=== PATIENT | male | born 2000 | race Caucasian/White ===

== ENCOUNTER 2025-09-07 12:52 | Outpatient (AMB) | payer OTHER, SELFPAY ==
--- OUTSIDE RECORDS SUMMARY | 2025-09-07 12:55 | XMS_ITS | Encounter Summary ---
Author Organization [facility] Address [address] [place] [address] Care Team Providers Care Stoker Installation Mechanic Name Role Phone Luisa Lee MD Primary Care Provider [phone] Encounter Details Date Type Department Care Team (Late st Contact Info) Description 04/14/2024 Orders Only [facility] Department of Internal Medicine [address], [place] [id number] Darius Lambert, DO [address] [place], [place] [id number] Chlamydia (Primary Dx) Social History Tobacco Use Types Packs/Day Years Used Date Smoking Tobacco: Some Days Cigars Smokeless Tobacco: Never Alcohol Use Standard Drinks/Week Comments Yes 2 (1 standard drink = 0.6 oz pur e alcohol) Overall Financial Resource Strain (CARDIA) Answe r Date Recorded How hard is it for you to pa y for the very basics like food, housing, medical care, and heating? Not hard at all 07/09/2023 PHQ-2 Answer Date Recorded PHQ-2 Score 0 07/09/2023 Hunger Vital Sign Answer Date Recorded Within the past 12 months, y ou worried that your food would run out before you got the money to buy more. Never true 07/09/20 23 Ran Out of Food in the Last Year Not on file 07/09/2023 PRAPARE - Transportation Answer Date Re corded In the past 12 months, has l ack of transportation kept you from medical appointments or from getting medications? No 07/09/2023 Lack of Transportation (Non-Medical) Not on file 07/09/2023 Sex and Gender Information Value Date Recorded Sex Assigned at Male 03/16/2024 1:51 AM EDT Legal Sex Male 11:39 AM EDT Gender Identity Male 03/16/2024 1:51 AM EDT Sexual Orientation Bisexual 03/16/2024 1: 51 AM EDT COVID-19 Exposure Response Date Recorded In the last 10 days, have yo u been in contact with someone who was confirmed or suspected to have Coronavirus/COVID-19? No / Unsure 04/15/2024 2:48 PM EDT documented as of this encounter Plan of Treatment Scheduled Orders Name Type Priority Associated Diagnoses Orde r Schedule Neisseria gonorrhea/Chlamydia trachomatis NAAT Microbiology Routine Chlamydia Expected: 06/14/2024, Expires: 10/15/2025 Urinalysis, Complete - macroscopic and microscopic (Panel) Lab Routine Chlamydia Expected: 06/14/2024, Expires: 10/15/2025 documented as of this encounter Visit Diagnoses Diagnosis Chlamydia- Primary Other specified chlamydial infection, in conditions classified elsewhere and of unspecified site documented in this encounter Care Teams Stoker Installation Mechanic Relationship Specialty Start Date End Date Luisa Lee MD [address] [facility] [place] [address] PCP - General Internal Medicine 04/13/24 documented as of this encounter
--- OUTSIDE RECORDS SUMMARY | 2025-09-07 12:55 | XMS_ITS | Clinical Summary ---
Author Organization [facility] Prior to 02/12/25 Address [address] [place] [address] Care Team Providers Care Cardiac Cath Rn Name Role Phone Unavailable Primary Care Provider Unavailabl e Allergies No known active allergies Immunizations Name Administration Dates Next Due Covid-19 (Pfizer) Dilution Required 01/22/2021,0 01/01/2021 Social History Tobacco Use Types Packs/Day Years Used Date Smoking Tobacco: Never Assessed Sex and Gender Information Value Date Recorded Sex Assigned at Not on file Gender Identity Not on file Sexual Orientation Not on file Job Start Date Occupation Industry Not on file Not on file Not on file Plan of Treatment Health Maintenance Due Date Last Done Comments Hepatitis B Vaccines (1 of 3 - 3-dose series) 2000 Hepatitis C Screening 2000 Depression Screening 2012 Preventative Health Evaluation 2018 DTap / Tdap / Td (7 - Td or Tdap) 06/24/2021 06/24/2011, 10/24/2004, 08/20/2001, Additional history exists COVID-19 Vaccine ( season) 2025 01/22/2021, 01/01/2021 Influenza Vaccine (#1) 2025 8, 06/18/2017, 06/24/2011 Pneumococcal Vaccine Completed 08/20/2001, 05/21/2001, 02/20/2001 RSV Ped < 20 months Aged Out No longe r eligible based on patient's age to complete this topic
--- OUTSIDE RECORDS SUMMARY | 2025-09-07 12:55 | XMS_ITS | Clinical Summary ---
Author Organization [facility] [address] [place] [address] [place] [phone] Phone Care Team Providers Care Sheet Rock Hanger Name Role Phone Lynette Anton MD Primary Care Provider [phone] Allergies No known active allergies Medications fluticasone propionate (FLONASE) 50 mcg/actuation nasal sprayIndications:a llergic conjunctivitis Administer 2 sprays into affected nostril(s) 1 (one) time each day. Patient By Over the counter. Active Active Problems Problem Noted Date Diagnosed Date Allergies 01/27/2025 Social History Tobacco Use Types Packs/Day Years Used Date Smoking Tobacco: Never Assessed Housing Instability Answer Date Recorde d Are you worried that in the next 2 months you may not have stable housing? No 01/06/2025 Food Access & Nutrition Answer Date Rec orded Do you have access to a vari ety of food including fruits and vegetables? Yes 01/06/2025 Access to Healthcare Answer Date Record ed Within the last 3 months, ho w many times did you visit the emergency department for your medical care? 0 01/06/2025 Health Literacy Answer Date Recorded How often do you need to hav e someone help you when you read instructions, pamphlets, or other written material from your doctor or pharmacy? Never 01/06/2025 Caregiver: How often do you need to have someone help you when you read instructions, pamphlets, or other written material from your doctor or pharmacy? Not on file 01/06/2025 Financial Risk Answer Date Recorded How hard is it for you to pa y for the very basics like food, housing, medical care, and air conditioning / heating? Somewhat hard 01/06/2025 Transportation Answer Date Recorded Has the lack of transportati on kept you from meetings, work, or from getting things needed for daily living? No Has the lack of transportati on kept you from medical appointments or from getting medications? No 01/06/2025 Social Isolation Answer Date Recorded How often do you feel lonely or isolated from th ose around you? Often 01/06/2025 Food Risk Answer Date Recorded Within the past 12 months we worried whether our food would run out before we got money to buy more. Never true 01/06/2025 Within the past 12 months th e food we bought just didn't last and we didn't have money to get more. Never true 01/06/2025 Dependent Care Answer Date Recorded Do you need help finding or paying for care for your loved ones. For example, children's tutor nursery or elderly care for an older adult? No 01/06/2025 Education Answer Date Recorded Do you think completing more education or training, like finishing a GED, going to college, or learning a trade, would be helpful for you? Yes 01/06/2025 Employment and Income Answer Date Recor ded During the last four weeks, have you been actively looking for work? No 01/06/2025 Living Situation Answer Date Recorded What is your living situation? Unrecognized valu e 01/06/2025 Sex and Gender Information Value Date Recorded Sex Assigned at Male 01/06/2025 12:41 PM EDT Legal Sex Male 7:39 PM EST Gender Identity Male 01/06/2025 12:41 PM EDT Sexual Orientation Bisexual 01/06/2025 12 :41 PM EDT Last Filed Vital Signs Vital Sign Reading Time Taken Comments Blood Pressure 107/67 01/27/2025 7:48 AM EDT Pulse 78 01/27/2025 7:48 AM EDT Temperature 35.6 C (96 F) 01/27/2025 7:48 AM EDT Respiratory Rate 16 01/27/2025 7:48 AM EDT Oxygen Saturation 95% 01/27/2025 7:48 AM EDT Inhaled Oxygen Concentration - - Weight 92.7 kg (204 lb 6.4 oz) 01/27/2025 7:48 A M EDT Height 167.6 cm (5' 6 ) 01/27/2025 7:48 AM EDT Body Mass Index 32.99 01/27/2025 7:48 AM EDT Plan of Treatment Health Maintenance Due Date Last Done Comments HPV Vaccines (3 - Male 3-dose series) 07/06/2024 04/13/2024, 07/09/2023 HIV Screening 01/07/2025 COVID-19 Vaccine ( season) 2025 07/09/2023, 01/22/2021, 01/01/2021 Influenza Vaccine (#1) 2025 , 06/22/2018, 06/18/2017, Additional history exists Social Influencers of Health Screening 01/06/2026 01/06/2025 DTaP,Tdap,and Td Vaccines (8 - Td or Tdap) 07/09/2033 07/09/2023, 06/24/2011, 10/24/2004, Additional history exists RSV Immunization Adult Patients (1 - 1-dose 75+ series) 2075 HIB Vaccines Completed 08/20/2001, 03/2001, 2000, Additional history exists Pneumococcal Vaccine: Pediatrics (0 to 5 Years) and At-Risk Patients (6 to 49 Years) Completed 08/20/2001, 05/21/2001, 02/20/2001 IPV Vaccines Completed 10/24/2004, 02/2001, 02/20/2001, Additional history exists MMR Vaccines Completed 10/24/2004, 05/21/2001 Varicella Vaccines Completed 06/24/2011, 05/21/2001 Meningococcal ACWY Vaccine Completed 06/18/2017, Hepatitis B Vaccines Completed 07/09/2023, 02/20/2001, 2000, Additional history exists Hepatitis C Screening Completed 04/13/2024 Depression Screening Completed 01/06/2025 Hepatitis A Vaccines Aged Out No long er eligible based on patient's age to complete this topic Meningococcal B Vaccine Aged Out No l onger eligible based on patient's age to complete this topic RSV Immunization Patients Under 20 months Aged Out No longer eligible based on patient's age to complete this topic Insurance [facility] Care Teams Sheet Rock Hanger Relationship Specialty Start Date End Date Lynette Anton MD [address] [place] [address] PCP - General Internal Medicine 01/27/25
--- OUTSIDE RECORDS SUMMARY | 2025-09-07 12:55 | XMS_ITS | Clinical Summary ---
Author Organization [facility] Address [address] [place] [address] Care Team Providers Care Entry Level Name Role Phone Luisa Lee MD Primary Care Provider [phone] Allergies Active Allergy Reactions Criticality Noted Date Comments Cat's Claw Other (see comments) 03/25/2023 Sneezing, congestion, and eye irritation. Dog Dander Other (see comments) 03/25/2023 Sneezing, congestion, and eye irritation. Other Other (see comments) 03/25/2023 Trees. Sneezing, congestion, and eye irritation. Pollen Extracts Other (see comments) 03/25/2023 Sneezing, congestion, and eye irritation. Medications * This document contains information received from the source organization and may not represent a complete record from that organization. fluticasone propionate (FLONASE) 50 mcg/actuation nasal spray Administer 1 spray into each nostril in the morning. 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 No history of STIs previous. Denies symptoms such as urethral discharge, swelling lymph nodes in inguinal region, painful swollen testicles, pain in perineum when sitting or defecating. He did endorse having some night sweats/subjective fevers however no other constitutional symptoms. UA demonstrated marjorie urine, moderate amount of blood, protein, urobilinogen. Negative for nitrates. Trace leukocyte esterase. No other significant symptoms/signs of concern such as flank pain suprapubic tenderness. It is possible this could be evidence of infective urethritis +/- associated to STI. For now will treat as not STI infection with Doxycycline with benefit of additional coverage of chlamydia however if testing is positive for gonorrhea then he will need to come in for IM CTX or could possibly do PO Cefpodoximine if he is unable to do this. Additionally other considerations need to be made for example the elevated level of blood, protein,urobilinogen which also could be suggestive of a nephrotic/nephritic syndrome or other concerning condition such as liver disease, underlying autoimmune conditions. However, with that said his PE exam and lack of significant findings is reassuring to the prior. 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 lives at home with mother aunt and uncle has a support system and someone he can call if he could becomes severely depressed or in crisis Weight Change/Exercise: Regularly works out mainly aerobic Friday through Friday approximately 1 hour Substances: Uses alcohol socially on weekend, occasionally tobacco (cigar) 1 time a week denies other substances Immunizations Due: Will hold off for now until records can be obtained HIV: agreeable Hep C: agreeable Colon cancer screening: Not indicatd Lung cancer screening: Not indicated AAA screen Not indicated Last DXA: Not indicated Last Vision: 3 months prior, goes once a year Last Dental: 3 months, every 6 months PHQ9: 18 GAD7: 18 Plan - Patient requested STI screening will complete - Follow up one year for annual physical/wellness Depression, major, 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 Multiple positive life events have occurred since we last met. Has met a new girlfriend who he is excited about. Has met her family. Enjoys going to social functions and meeting new people. Sleeping 8-9 hours. Low caffeine use. Weight/appetite is stable. Energy levels are good. No SI/HI. When first establishing care Pt was experiencing severe episode of depression, was not on medication. Hx of depression since childhood which he was treated for with fluoxetine 5 mg daily and worked well for him -- this prompted us to restart this medication at 10 mg daily. Did experience SI in the past however did not have active ideation at time of last visit. B12, vitamin D, TSH all normal at that time. 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 During today's evaluation did report suicidal ideation however does not have plan and has a good support structure including a mom and an uncle who lives at home with him and also a friend/level and that he can call and discuss if he is in severe depressed mood/crisis. Does not actively have ideation and would like to restart medication is amendable to restarting fluoxetine at 5 mg. Has not had recent blood work done including TSH, vitamin D, B12, B9. 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 Plan - B9 B12 vitamin D TSH - Fluoxetine 10 mg daily plan to increase in 2 weeks if doing well on medication - Gave patient resources for psychology today.com - Does not need close monitoring at this point will reassess ongoing Anxiety 03/25/2023 Assessment & Plan (07/09/2023 3:46 PM EDT): Patient endorses severe anxiety during visit. On DONNIE 7 scored 18 on 04/01/2023. Has history of anxiety in childhood which he had previously taken fluoxetine 5 mg daily and tolerated well. Was started on Fluoxetine 10 mg daily during last visit. Reports significant improvement in mood and anxiety. Is excited to meet new people now. Has a new girlfriend who he is excited about. Sleeps 8-9 hours per day. Is happy with medication would like to stay at current dose. DONNIE-7 07/07 0 04/06 18 Plan - Continue medication -- FU 6 months Assessment & Plan (03/25/2023 4:33 PM EDT): Patient endorses severe anxiety during visit. On DONNIE 7 scored 18. Has history of anxiety in childhood which he had previously taken fluoxetine 5 mg daily and tolerated well. Okay with starting medication now and amendable to fluoxetine 5 mg daily. [place] noting that he also first from severe depression. DONNIE-7 18 This is likely anxiety less likely hypothyroidism, medication induced, secondary. Plan - Fluoxetine 10 mg daily follow-up in 2 weeks and increase dose if patient tolerated well - TSH Immunizations Immunization Administration Dates Next Due Covid-19 Moderna Seasonal Vaccine (12y And Older ) 07/09/2023 HepB-CpG 07/09/2023 Hpv Vaccine 9-valent 04/13/2024,07/09/2023 Influenza, Quadrivalent 07/09/2023 Tdap 07/09/2023 Family History Medical History Relation Comments Intellectual Disability Brother Learning disabilities Brother Alcohol abuse Maternal Grandmother Vision loss Maternal Grandmother Alcohol abuse Mother Asthma Mother Depression Mother Mental illness Mother Vision loss Mother Asthma Sister 1 Depression Sister 1 Mental illness Sister 1 Drug abuse Sister 2 Mental illness Sister 2 Relation Status Comments Brother Maternal Grandmother Mother Sister 1 Sister 2 Social History Tobacco Use Types Packs/Day Years [...] Orientation Bisexual 03/16/2024 1: 51 AM EDT Last Filed Vital Signs Vital Sign Reading Time Taken Comments Blood Pressure 122/78 04/13/2024 3:19 PM EDT Pulse 80 04/13/2024 3:19 PM EDT Temperature 36.8 C (98.3 F) 04/13/2024 3:19 PM EDT Respiratory Rate 16 07/09/2023 3:02 PM EDT Oxygen Saturation 96% 04/13/2024 3:19 PM EDT Inhaled Oxygen Concentration - - Weight 84.3 kg (185 lb 14.4 oz) 04/13/2024 3:19 PM EDT Height 166.4 cm (5' 5.51 ) 04/13/2024 3:19 PM ED T Body Mass Index 30.45 04/13/2024 3:19 PM EDT Plan of Treatment Health Maintenance Due Date Last Done Comments PrEP Initiation 2000 Hepatitis B Vaccines (2 of 2 - CpG 2-dose series) 08/06/2023 07/09/2023 HPV Vaccines (3 - Male 3-dos e series) 07/06/2024 04/13/2024, 07/09/2023 COVID-19 Vaccine (4 - 2024-2 6 season) 2025 07/09/2023, 01/22/2021, 01/01/2021 Influenza Vaccine (#1) 2025 07/09/2023 DTaP,Tdap,and Td Vaccines (2 - Td or Tdap) 07/09/2033 07/09/2023 Zoster Vaccines (1 of 2) 2050 HIV Screening Completed 04/13/2024, 03/27/2023 Hepatitis C Screening Completed 04/13/2024 , 03/27/2023 Hepatitis A Vaccines Discontinued MMR Vaccines Aged Out No longer eligi ble based on patient's age to complete this topic Meningococcal Vaccine Aged Out No tanner michelle eligible based on patient's age to complete this topic Pneumococcal Vaccine: At-Ris k and Pediatric Patients (0 to 49 Years) Discontinued Procedures Procedure Name Priority Date/Time Associated Diagnosis Comments HEPATITIS C ANTIBODY Routine 04/13/2024 4:36 PM EDT Screening examination for STI HIV COMBO ANTIGEN/ANTIBODY Routine 04/13/2024 4:36 PM EDT Screening examination for STI from Last 3 Months or Most Recently Relevant to Health Maintenance Results * HIV combo antigen/antibody (04/13/2024 4:36 PM EDT) HIV Combo AB/AG Negative Negative 04/13/2024 7:50 PM EDT [facility] Blood Venous blood specimen / Unknown Venipuncture / Unknown 04/13/2024 4:36 PM EDT 04/13/2024 4:36 PM EDT Narrative [facility] - 04/13/2024 7:50 PM EDT This test is a 4th generation HIV Antigen-Antibody Combination assay, using a chemiluminescent microparticle immunoassay, for the simultaneous qualitative detection of human immuno- deficiency virus (HIV) p24 antigen and antibodies to HIV type 1 (HIV-1) and/or HIV type 2 (HIV-2) in human serum or plasma. The [employer] HIV Ag/Ab Combo assay is intended to be used as an aid in the diagnosis of HIV-1 and/or HIV-2 infection, including acute or primary HIV-1 infection. Initially-positive tests are repeated in duplicate. Repeat-positive tests will be confirmed for HIV by a HIV-1/HIV-2 rapid supplemental/ differentiation antibody assay. This testing algorithm is in line with the current CDC recommendations. us Luisa Lee MD LAB BLOOD ORDERABLES NO STAT F inal Result [facility] [address] [place] [address], [place] [phone] * Hepatitis C antibody (04/13/2024 4:36 PM EDT) Hepatitis C Antibody Negative Negative 04/13/2024 7:39 PM EDT [facility] Comment:Anti-HCV (HCVAb) Not Detected. Patient is presumed not to be infected with HCV. The possibility of exposure to HCV cannot be excluded. Blood Venous blood specimen / Unknown Venipuncture / Unknown 04/13/2024 4:36 PM EDT 04/13/2024 4:36 PM EDT Luisa Lee MD LAB BLOOD ORDERABLES NO STAT F inal Result [facility] [address] [place] [address], from Last 3 Months or Most Recently Relevant to Health Maintenance Insurance [facility] Care Teams Entry Level Relationship Specialty Start Date End Date Luisa Lee MD [address] [facility] [address] PCP - General Internal Medicine 04/13/24
--- OUTSIDE RECORDS SUMMARY | 2025-09-07 12:55 | XMS_ITS | Clinical Summary ---
Author Organization [facility] Address [address] [place] [address] Care Team Providers Care Fiberglass Bonding Machine Tender Name Role Phone Unavailable Primary Care Provider Unavailabl e Social History Tobacco Use Types Packs/Day Years Used Date Smoking Tobacco: Never Assessed Sex and Gender Information Value Date Recorded Sex Assigned at Not on file Legal Sex Male 6:56 PM EDT Gender Identity Not on file Sexual Orientation Not on file Last Filed Vital Signs Vital Sign Reading Time Taken Comments Blood Pressure 119/63 02/05/2019 9:38 PM EDT Pulse 82 02/05/2019 9:38 PM EDT Temperature 36.1 C (97 F) 02/05/2019 9:38 PM EDT Respiratory Rate 16 02/05/2019 9:38 PM EDT Oxygen Saturation 94% 02/05/2019 9:38 PM EDT Inhaled Oxygen Concentration - - Weight - - Height - - Body Mass Index - - Plan of Treatment Health Maintenance Due Date Last Done Comments Hepatitis C Virus Screening 2000 HIV Screening 2013 HPV Vaccines (1 - Male 3-dos e series) 2015 DTaP/Tdap/Td Vaccines (1 - Tdap) 2019 Hepatitis B Vaccines (1 of 3 - 19+ 3-dose series) 2019 Influenza Vaccine 04/15/2025 COVID-19 Vaccine (2 - 2024-2 6 season) 2025 01/01/2021 Pneumococcal Vaccine: Pediat leann (0-5 Years) and At-Risk Patients (6 to 49 Years) Aged Out No longer eligible b ased on patient's age to complete this topic Insurance BLUE CROSS OUT OF STATE - PPO MEDICAID OUT OF STATE [facility] on file
--- NOTE | 2025-09-07 12:58 | MHC.PC.OV ---
Vital Signs 09/07/25 13:00 Height 5 ft 5.5 in Weight 197 lb BMI 32.3 BP 108/64 Blood Pressure Location Rt brachial Position Sitting Respiration 16 Pulse 74 Pulse Source Pulse Oximeter Temp 98.0 F Temp Source Temporal Artery Scan Pulse Oximetry (%) 97 Oxygen Delivery Method Room Air Intake Visit Reasons: [employer] - Diabetes concern Salon Shampoo Assistant Required: No Accompanied by: Self / Same As Patient Allergies No Known Allergies Allergy (Verified 09/07/25 13:01) Tobacco use date assessed: 09/07/25 Dental Screening Dental Screen Date: 09/07/25 Did you have a dental visit in the last 12 months?: Yes Did you have a dental problem in the last 6 months where you did not have access to dental care?: No Was dental information given to patient?: Patient has dentist HPI HPI Comments History of Present Illness Details The patient is a 25 year old male presenting to [facility] care and for evaluation of increased appetite and low energy. He reports these symptoms have been ongoing for the last six months. He has experienced significant fatigue and a notable weight gain of 30 pounds over this period, which he associates with his increased appetite. Also reports intermittent insomnia. The patient also reports experiencing daily anxiety since summertime, approximately six months ago. He states the anxiety impacts his social life the most and leads to avoidance of certain situations. Over a year ago, he was on an unspecified antidepressant for approximately three months but stopped as he felt it was not working well for him. The patient's past medical history is otherwise unremarkable. Family history is positive for prostate cancer in his maternal grandfather, as well as hypertension and hyperlipidemia on both parents' sides. There is no family history of diabetes. 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 He lives with his and has no children. He denies smoking tobacco, uses alcohol two to three times per month, 2 drinks on each occassion, and uses marijuana two to three times per month. [facility] Social History Housing: Apartment Patient Tobacco Use Status: Former Tobacco user Tobacco use type: Cigarette Years Smoked: 1 year e-Cigarette/Vaping Use: Never Used service: No Current occupational status: employed and student Current occupation: [employer] teacher Cognitive needs: No Hearing needs: No Vision needs: Yes Questionnaire PHQ-9 Over the last 2 weeks, how often have you been bothered by any of the following problems? 1. Little interest or pleasure in doing things: more than half the days 2. Feeling down, depressed, or hopeless: several days 3. Trouble falling or staying asleep, or sleeping too much: more than half the days 4. Feeling tired or having little energy: nearly every day 5. Poor appetite or overeating: several days 6. Feeling bad about yourself - or that you are a failure or have let yourself or your family down: several days 7. Trouble concentrating on things, such as reading the newspaper or watching television: more than half the days 8. Moving or speaking so slowly that other people could have noticed. Or the opposite - being so fidgety or restless that you have been moving around a lot more than usual: not at all 9. Thoughts that you would be better off or of hurting yourself in some way: not at all Total score: 12 Source: Developed by Drs. Jaguar Farrar, Radha Taylor, Payam Kuo and colleagues, with an educational aj from [employer]. Thrive Questionnaire Date Thrive assessed: 09/07/25 I am a: Patient What is your living situation today?: I have a steady place to live Within the past 12 months, did the food you bought not last and you didn't have the money to get more?: Never true Within the past 12 months, did you worry whether your food would run out before you got money to buy more?: Never true Do you have trouble paying for medicines?: No Do you have trouble getting transportation to medical appointments?: No Do you have trouble paying your heating and electricity bill?: No Do you have trouble taking care of your child, family member or friend?: No Do you have trouble with day-to-day activities such as bathing, preparing meals, shopping, managing finances, etc.?: No Are you currently unemployed and looking for a job?: No Are you interested in more education?: No Please select the resources that you would like help with: None Currently or been in a relationship where the following occur: No concerns reported THRIVE Score: 0 AUDIT C Alcohol Use Questionnaire (AUDIT-C) 1. How often do you have a drink containing alcohol?: 2-4 times a month 2. How many drinks containing alcohol do you have on a typical day when you are drinking?: 1 or 2 3. How often do you have six or more drinks on one occasion?: Never Total Score: 2 AARON-7 AMB Questionnaire AARON-7 Date AARON - 7 assessed: 09/07/25 Feeling nervous, anxious, or on edge: 2 = More than half the days Not being able to stop or control worryin = Nearly every day Worrying too much about different things: 3 = Nearly every day Trouble relaxin = More than half the days Being so restless that it is hard to sit still: 3 = Nearly every day Becoming easily annoyed or irritable: 3 = Nearly every day Feeling afraid as if something awful might happen: 2 = More than half the days Total AARON-7 score (0-4 normal; 5-9 mild; 10-14 moderate; 15-21 severe): 18 Source: Developed by Drs. Jaguar Farrar, Radha Taylor, Payam Kuo and colleagues, with an educational aj from [employer]. Physical exam (Primary Care) Vital Signs: Last Vital Signs Temp 98.0 F 09/07/25 13:00 Pulse 74 09/07/25 13:00 Resp 16 09/07/25 13:00 BP 108/64 09/07/25 13:00 Pulse Ox 97 09/07/25 13:00 Oxygen Delivery Method Room Air 09/07/25 13:00 General: Well-appearing, alert, oriented ?3, in no acute distress. Cardiovascular: RRR, S1-S2 appreciated, no murmurs, rubs or gallops. Respiratory: Lungs clear to auscultation bilaterally, no wheezes, rales or rhonchi. Abdomen: Soft, nontender, nondistended. Normoactive bowel sounds. Psychiatry: Normal mood and affect. Appropriate behavior, good eye contact. BMI result Body Mass Index 32.3 Tobacco/Smoking Status: Tobacco use Status Tobacco use date assessed 09/07/25 09/07/25 13:05 Patient Tobacco Use Status Former Tobacco user 09/07/25 13:05 Tobacco use type Cigarette 09/07/25 13:05 e-Cigarette/Vaping Use Never Used 09/07/25 13:05 PHQ-9: PHQ-9 Score PHQ-9: Total score 12 09/07/25 13:05 Thrive Assessment: Date of Thrive Assessment Date Thrive assessed 09/07/25 09/07/25 13:05 Currently or been in a relationship where the following occur: No concerns reported Coding Level of Care Code New Pt Level 4 (98917) Diagnoses Establishing care with new doctor, encounter for Z76.89 Anxiety F41.9 Fatigue, unspecified type R53.83 Fatigue type: unspecified Weight gain R63.5 Assessment & Plan Assessment & Plan (1) Establishing care with new doctor, encounter for: Code(s): Z76.89 - Persons encountering health services in other specified circumstances Plan: Patient is a 25-year-old male presenting to establish care. Not on any regular daily medications. (2) Anxiety: Code(s): F41.9 - Anxiety disorder, unspecified Category: Medical Plan: Patient reports worsening anxiety over the past 6 months that is impacting his quality of life, leading to avoidance of certain situations. Aaron 7 score of 18 consistent with a severe anxiety. Plan - start sertraline, at 25 mg daily for 7 days to assess medication tolerance then increase to 50 mg daily. I explained that he would not necessarily need to be on it for life and could wean off in the future, especially with the help of therapy. Patient is agreeable - referral for counseling services provided - follow up in 4-6 weeks (3) Fatigue: Code(s): R53.83 - Other fatigue Category: Medical Qualifiers: Fatigue type: unspecified Qualified Code(s): R53.83 - Other fatigue Plan: Patient also complains of six-month history of fatigue, increased appetite and 30 lb weight gain. Could be related to his underlying anxiety and depression versus anemia or thyroid disease. Further evaluate with CBC, CMP, TSH and vitamin-D levels (4) Weight gain: Code(s): R63.5 - Abnormal weight gain Category: Medical Plan: Obtain lipid panel and hemoglobin A1c, Plan as above Orders: Orders Complete Blood Count Auto Diff Today Z00.00 - Encounter for general adult medical examination without abnormal findings Lipid Panel with Reflex Today Z13.220 - Encounter for screening for lipoid disorders Comprehensive Met. Panel Today Z00.00 - Encounter for general adult medical examination without abnormal findings Hemoglobin A1c Today Z13.1 - Encounter for screening for diabetes mellitus TSH reflex Free T4 Today R53.83 - Other fatigue Vitamin D 25-OH (D2 and D3) Today R53.83 - Other fatigue Referrals Counseling Referral F41.9 - Anxiety disorder, unspecified Medications: New sertraline 50 mg PO DAILY 30 tabs 0RF sertraline 25 mg PO DAILY 7 tabs 0RF anxiety
[2025-09-07 13:00] VITALS: BP 108/64; PULSE 74; RESP 16; TEMP 36.7; O2SAT 97; BMI 32.3
== END 2025-09-07 13:31 | disposition home or self-care (01) ==
LOC: HO.HMCH 12:53
PROVIDERS: PCP Student in an Organized Health Care Education/Training Program; Visit Provider Student in an Organized Health Care Education/Training Program
DX: Z76.89 Persons encountering health services in other specified circumstances (principal); F41.9 Anxiety disorder, unspecified; R53.83 Other fatigue; R63.5 Abnormal weight gain